=== PATIENT | male | born 1985 | race Hispanic/Latino ===

== ENCOUNTER 2023-05-23 08:29 | Emergency (ER) | payer OTHER ==
[~2023-05-23] VITALS: Ht 180.3 cm; Wt 80.7 kg
[2023-05-23 08:44] VITALS: BP 102/54; PULSE 65; RESP 18; O2SAT 100
[2023-05-23] MEDS: LIDOCAINE 1%-EPI 1:100,000 20 ML VIAL ONE (10:00)
[2023-05-23] MEDS: LIDOCAINE HCL-MPF 2% 5ML VIAL ONE (10:01)
[2023-05-23] MEDS: CEFAZOLIN SODIUM 1 GM VIAL IM SCH (10:10)
[2023-05-23] MEDS: BACITRACIN 1 EACH PACKET TP ONE (10:36)
[2023-05-23] MEDS ORDERED: CEPH500B PO (10:40)
[2023-05-23] MEDS ORDERED: IBUP-2070 PO (10:40)
== END 2023-05-23 10:50 | disposition home or self-care (01) ==
LOC: EDH 08:29
DX: S61.412A Laceration without foreign body of left hand, initial encounter (principal); W45.8XXA Other foreign body or object entering through skin, initial encounter; Y93.89 Activity, other specified; Y92.89 Other specified places as the place of occurrence of the external cause; Y99.8 Other external cause status
CPT/HCPCS: 99283; 12002; 96372; J0690; J3490 ×2